=== PATIENT | male | born 1950 | race Caucasian/White ===

== ENCOUNTER 2017-01-19 12:08 | Emergency (ER) | payer MEDICARE ==
[~2017-01-19] VITALS: Ht 175.3 cm; Wt 79.0 kg
[~2017-01-19 12:08] MED LIST: ALPH200C3 PO; ASPI81TA82 PO; COEN400C PO; LIPI80TA16 PO; MAGN500T4 PO; OMEGCAP21 PO; PEMB1INJ; [UNRECOGNIZED DRUG - CODE] PO
[2017-01-19 12:10] VITALS: BP 123/77; PULSE 69; RESP 16; TEMP 98.3; O2SAT 99
--- NOTE | 2017-01-19 12:25 | PD ---
HPI Chief Complaint: Injury Time Seen by Provider: 12:24 Travel History International Travel<30 days: No Contact w/Intl Traveler<30days: No Traveled to known affect area: No History of Present Illness HPI 66-year-old male presents to the ED for evaluation of simplex nail puncture to the right foot approximately one hour ago. Patient was wearing his flip flops when he stepped on a meg nail between his house and his neighbors. He denies numbness, tingling, weakness, limitations to range of motion or loss of strength of the extremity. He immediately removed the nail, lab area bleed, cleaned it with alcohol and applied a Band-Aid. He is unsure of the date of his last tetanus immunization. PFSH Past Medical History Hx Anticoagulant Therapy: Yes (BABY ASA DAILY) Cancer: Yes (MULTIPLE SKIN LESIONS) Cardiovascular Problems: Yes (CHOL) Diabetes: No Endocrine: No Genitourinary: No Hepatitis: No Hiatal Hernia: No Immune Disorder: No Musculoskeletal: No Neurologic: No Psychiatric: No Reproductive: No Respiratory: No Immunizations Current: Yes Thyroid Disease: No Past Surgical History Abdominal Surgery: Yes (HERNIA REPAIR APPENDECTOMY) AICD: No Appendectomy: Yes Cardiac Surgery: Yes (CABG 96) Coronary Artery Bypass Graft: Yes (TRIPPLE) Ear Surgery: No Endocrine Surgery: No Eye Surgery: No Genitourinary Surgery: No Gynecologic Surgery: No Joint Replacement: No Oral Surgery: Yes (TOOTH EXTRACTION 06) Pacemaker: No Thoracic Surgery: Yes Social History Alcohol Use: No Tobacco Use: Yes (1/2 TO 3/4 PPD) Substance Use: No Allergies-Medications (Allergen,Severity, Reaction): Coded Allergies: Penicillin (Verified Allergy, Intermediate, "PASSED OUT", 01/19/17) Reported Meds & Prescriptions Reported Meds & Active Scripts Active Keflex (Cephalexin) 500 Mg Cap 500 Mg PO Q12H 10 Days Ciprofloxacin (Ciprofloxacin HCl) 500 Mg Tab 500 Mg PO BID 5 Days Reported Chlorella (Multiple Vitamins W/ Iron) 1 Cap Cap 1,200 PO DAILY Coq-10 (Coenzyme Q10 (Ubidecarenone)) 100 Mg Cap PO DAILY [place] 3 1200 mg ([place]-3 Fatty Acids) 1 Cap Cap PO DAILY Aspirin 81 (Aspirin) 81 Mg Tabdr 81 Mg PO HS Keytruda Inj (Pembrolizumab) 50 Mg Inj 161 EVERY 3 WEEKS Atorvastatin (Atorvastatin Calcium) 80 Mg Tab 80 Mg PO HS Review of Systems Except as stated in HPI: all other systems reviewed are Neg Physical Exam Narrative GENERAL: Well-nourished, well-developed white male in no acute distress. SKIN: Focused skin assessment warm/dry. There is a subcentimeter puncture wound just proximal to the third digit of the plantar aspect of the right foot. No warmth, erythema, active bleeding or visible foreign body. HEAD: Normocephalic. EYES: No scleral icterus. No injection or drainage. NECK: Supple, trachea midline. No JVD or lymphadenopathy. CARDIOVASCULAR: Regular rate and rhythm without murmurs, gallops, or rubs. RESPIRATORY: Breath sounds equal bilaterally. No accessory muscle use. GASTROINTESTINAL: Abdomen soft, non-tender, nondistended. MUSCULOSKELETAL: No cyanosis, or edema. FOCUSED RIGHT LOWER EXTREMITY EXAM: 2+ radial pulse. Patient maintains full, active, painless range of motion of the extremity. Neurovascularly intact. BACK: Nontender without obvious deformity. No CVA tenderness. Data Data Last Documented VS Vital Signs Date Time Temp Pulse Resp B/P Pulse Ox O2 Delivery O2 Flow Rate FiO2 01/19/17 12:10 98.3 69 16 123/77 99 Orders Tetanus/Diphtheria Tox Adult (Tetanus/Di (01/19/17 12:45) Foot, Limited (2vws) (01/19/17 12:33) MDM Medical Decision Making Medical Screen Exam Complete: Yes Emergency Medical Condition: Yes Differential Diagnosis Puncture versus laceration versus need for tetanus immunization versus Narrative Course 66-year-old male presents to the ED for evaluation of simplex nail puncture to the right foot approximately one hour ago. Patient was wearing his flip flops when he stepped on a meg nail between his house and his neighbors. He denies numbness, tingling, weakness, limitations to range of motion or loss of strength of the extremity. He immediately removed the nail, lab area bleed, cleaned it with alcohol and applied a Band-Aid. He is unsure of the date of his last tetanus immunization. Vitals reviewed. Physical exam reveals a subcentimeter puncture on the plantar aspect of the foot, just proximal to the third digit. Mild tenderness. No active bleeding or visible foreign body. The foot was soaked in a 50-50 mix of water and Betadine. Patient's tetanus immunization was updated. X-rays unremarkable per radiology read. This is puncture of the foot. Patient was prescribed Cipro and Keflex. He is instructed to discontinue using his atorvastatin while taking the Cipro. We discussed wound care, reasons to return to the ED. Patient instructed to keep the area clean, dry, covered, take all medication as prescribed, follow up with his primary care provider. He indicated understanding of the instructions and is agreeable to the care plan. He is stable and discharged home. Diagnosis Primary Impression: Puncture wound of right foot excluding toes without complication Qualified Code: S91.331A - Puncture wound of right foot excluding toes without complication, initial encounter Referrals: Primary Care Physician Patient Instructions: General Instructions, Puncture Wound (ED) Additional Instructions: Rest, ice, elevate the extremity. Keep the wound clean, dry and covered. Take all antibiotics as prescribed, even if symptoms resolve during the course of treatment. Stop taking atorvastatin while taking Cipro (5 days).) Resume atorvastatin after completing the CIPRO. [id number] pain relievers as described on the label, as needed for pain. Return to normal, gentle activity as tolerated. No running, jumping activities for the next few weeks. Follow up with primary care provider. Return to the ED for any urgent or emergent medical condition. Med/Other Pt SpecificInfo: Prescription(s) given Scripts Cephalexin (Keflex)500 Mg [id number] Mg PO Q12H 10 Days Ref 0 Prov:Luan Cooper MD 01/19/17 Ciprofloxacin 500 Mg [id number] Mg PO BID 5 Days Ref 0 Prov:Luan Cooper MD 01/19/17 Disposition: 01 DISCHARGE HOME Condition: Stable Elena Callahan Jan 19, 2017 12:24
[2017-01-19] MEDS ORDERED: COQ-100C2 PO (12:30)
[2017-01-19] MEDS ORDERED: ATOR1TAB18 PO (12:30)
[2017-01-19] MEDS ORDERED: PEMB1SOL (12:30)
[2017-01-19] MEDS ORDERED: OMEG12002 PO (12:30)
[2017-01-19] MEDS ORDERED: [UNRECOGNIZED DRUG - CODE] PO (12:30)
[2017-01-19] MEDS ORDERED: ASPI-110 PO (12:30)
[2017-01-19] MEDS ORDERED: TETANUS/DIPHTHERIA TOXOID ADULT 0.5 ML VIAL IM ONE (12:45)
--- NOTE | 2017-01-19 13:26 | RADHPO ---
EXAM DATE/TIME: 01/19/2017 12:44 [facility] COMPARISON: No previous studies available for comparison. INDICATIONS : Possible foreign body. Stepped on leny nail. Small puncture bottom of foot. MEDICAL HISTORY : None. SURGICAL HISTORY : None. ENCOUNTER: Initial ACUITY: 1 day PAIN SCORE: 7/10 LOCATION: Right lateral FINDINGS: No definite fractures, or dislocations are identified. No definite lytic or sclerotic lesion is seen . There is no evidence for a radiopaque foreign body for technique. CONCLUSION: Unremarkable study. Florencio Lee MD on January 19, 2017 at 13:24 Board Certified Radiologist. This report was verified electronically.
[2017-01-19] MEDS ORDERED: CIPR500T2 PO (13:29)
[2017-01-19] MEDS ORDERED: CEPH-460 PO (13:29)
== END 2017-01-19 13:35 | disposition home or self-care (01) ==
LOC: PHEFT 12:08
DX: S91.331A Puncture wound without foreign body, right foot, initial encounter (principal); Z95.1 Presence of aortocoronary bypass graft; F17.210 Nicotine dependence, cigarettes, uncomplicated; Z79.82 Long term (current) use of aspirin; Z23 Encounter for immunization; W45.0XXA Nail entering through skin, initial encounter; Y93.01 Activity, walking, marching and hiking; Y92.007 Garden or yard of unspecified non-institutional (private) residence as the place of occurrence of the external cause; Y99.8 Other external cause status
CPT/HCPCS: 73620; 90471; 90714